=== PATIENT | male | born 1995 ===

== ENCOUNTER 2018-11-18 15:16 | Emergency (ER) | payer OTHER ==
--- NOTE | 2018-11-18 16:20 | ED PDOC ---
HPI: Abdomen Time Seen by Provider: 11/18/18 15:50 Chief Complaint (Nursing): Abdominal Pain Chief Complaint (Provider): Abdominal Pain and Vomiting History Per: Patient History/Exam Limitations: no limitations Onset/Duration Of Symptoms: Days (x 1) Current Symptoms Are (Timing): Still Present Location Of Pain/Discomfort: Periumbilical Quality Of Discomfort: "Pain" Associated Symptoms: Nausea, Vomiting Additional Complaint(s): 23 year old male presents to the ED with a sudden onset of vomiting since 1 am last night, about 12 hours, associated with periumbilical abdominal pain and nausea. Patient reports more than ten episodes of non bloody non bilious vomiting since onset. He did not take any medications prior to arrival. Denies fever, diarrhea, urinary symptoms, cough, chest pain, shortness of breath and recent travel. PMD: none provided Past Medical History Reviewed: Historical Data, Nursing Documentation, Vital Signs Vital Signs: Last Vital Signs Temp 98.2 F 11/18/18 15:29 Pulse 88 11/18/18 15:29 Resp 24 11/18/18 15:29 BP 120/75 11/18/18 15:29 Pulse Ox 100 11/18/18 15:29 - Medical History PMH: Bronchitis Denies: Asthma - Surgical History Surgical History: No Surg Hx - Family History Family History: States: Unknown Family Hx - Social History Current smoker - smoking cessation education provided: No Alcohol: Social Drugs: Denies - Home Medications Home Medications: Ambulatory Orders Medication Instructions Recorded Acetaminophen with Codeine 1 each PO Q8 #14 tablet 01/17/16 [Tylenol with Codeine #3 Tablet] Acyclovir [Zovirax] 800 mg PO 5XD #35 tab 01/17/16 Benzonatate 200 mg PO TID PRN #20 capsule 02/20/16 Oseltamivir Phosphate [Tamiflu] 75 mg PO BID #10 tab 02/20/16 Acetaminophen [Acetaminophen Extra 2 tab PO Q6 PRN #24 tablet 07/18/16 Strength] Albuterol HFA [Ventolin HFA 90 2 puff IH [id number] PRN #1 inhaler 07/18/16 mcg/actuation (8 g)] Azithromycin [Zithromax] 1 tab PO DAILY #6 tab 07/18/16 Ibuprofen [Motrin] 600 mg PO Q8 PRN #21 tab 07/18/16 Promethazine/Codeine 5 ml PO Q12 PRN #100 ml 07/18/16 [Codeine/Promethazine 10 MG/5 Ml-6.25 MG/5 Ml] Naproxen [Naprosyn] 500 mg PO Q12 PRN #20 tablet 02/16/17 Ondansetron [Zofran] 4 mg PO Q8H PRN #10 tab 02/16/17 Cephalexin [Keflex] 500 mg PO Q6 #28 capsule 10/08/17 Ibuprofen [Motrin Tab] 1 tab PO Q6 PRN #20 tab 10/08/17 Sulfamethoxazole/Trimethoprim 1 tab PO BID #14 tab 10/08/17 [Bactrim DS 800 mg-160 mg] Amoxicillin 875 mg PO BID #20 tab 04/25/18 Ciprofloxacin/Dexamethasone 4 drop .ROUTE BID #1 bottle 04/25/18 [Ciprodex 0.3%-0.1% 7.5 Ml] Acetaminophen [8 Hour] 650 mg PO Q8 PRN #21 tablet.er 11/18/18 Famotidine [Pepcid] 40 mg PO DAILY #7 tablet 11/18/18 Ondansetron ODT [Zofran ODT] 8 mg PO Q6 PRN #12 odt 11/18/18 - Allergies Allergies/Adverse Reactions: Allergies Allergy/AdvReac Type Severity Reaction Status Date / Time No Known Allergies Allergy Verified 04/25/18 17:09 Review of Systems ROS Statement: Except As Marked, All Systems Reviewed And Found Negative Constitutional: Negative for: Fever Respiratory: Negative for: Cough, Shortness of Breath Gastrointestinal: Positive for: Nausea, Vomiting (more than 10 episodes of nbnb ), Abdominal Pain (periumbilical). Negative for: Diarrhea Genitourinary Male: Negative for: Dysuria, Frequency, Incontinence, Hematuria Physical Exam - Reviewed Nursing Documentation Reviewed: Yes Vital Signs Reviewed: Yes - Physical Exam Comments: GENERAL APPEARANCE: Patient is awake, alert, oriented x 3, in no acute distress; appear uncomfortable. SKIN: Warm, dry; (-) cyanosis. EYES: (-) conjunctival pallor. ENMT: Mucous membranes dry. NECK: (-) tenderness, (-) stiffness, (-) lymphadenopathy, (-) JVD. CHEST AND RESPIRATORY: (-) rash, (-) chest wall tenderness. Lungs: (-) rales, (-) rhonchi, (-) wheezes, (-) rub; breath sounds equal bilaterally. HEART AND CARDIOVASCULAR: (-) irregularity; (-) murmur, (-) gallop, (-) rub. ABDOMEN AND GI: Soft; (-) distention, (-) tenderness, (-) palpable pulsatile mass. BACK: Normal inspection; (-) CVA tenderness EXTREMITIES: (-) deformity; (-) edema, (-) calf tenderness. (+) distal pulses. NEURO AND PSYCH: Mental status as above. Cranial nerves grossly intact; strength symmetric. or tearing quality, (-) positional component, (-) exertional component, (-) dizziness, (-) syncope, (-) nausea, (-) vomiting, (-) calf swelling/pain, (-) neuro deficits. - Laboratory Results Result Diagrams: 11/18/18 16:20 11/18/18 16:20 Urine dip results: Positive for: Ketones (40). Negative for: Leukocyte Esterase, Blood, Nitrate, Glucose, Bilirubin, Protein - ECG O2 Sat by Pulse Oximetry: 100 (RA) Pulse Ox Interpretation: Normal Medical Decision Making Medical Decision Makin:57 Impression: abdominal pain and vomiting Initial Plan: --CMP --UDS --Lipase --CBC --Urine dip --NS IV --Pepcid 40mg IVP --Toradol 30mg IVP --Zofran Inj 8mg IVP --Influenza AB 1650 Udip reviewed and unremarkable. 1724 On re-evaluation, patient reports resolution of nausea and vomiting. Abdominal pain improved. CBC With Leukocytosis (20.2) and neutrophil shift. CMP grossly unremarkable. Lipase WNL. Influenza: negative Additional 1L NS ordered for hydration. 1829 Utox: cannabinoids Patient reports no complaints at present. Results discussed with patient with understanding. Patient now reports is nephew is also sick with viral gastroenteritis. Anticipate discharging patient when 2nd L NS complete. 1914 Patient requesting additional medication prior to discharge. Reglan 10mg IV ordered. 1944 On re-evaluation, patient reports improvement of symptoms. On exam, patient remains AAOx3, in no acute distress. Lungs clear to auscultation, cardiac RRR, abdomen soft, non-tender, repeat neuro exam shows no focal findings. Vitals stable. Lab/Diagnostic results d/w the patient in great detail. Diagnosis of abdominal pain, nausea and vomiting, viral gastroenteritis d/w the patient. Based on history, exam and diagnostic results, plan will be for outpatient follow up with clinic/GI. Patient instructed to follow-up with pmd / referral provided / the clinic in 1- 2 days without fail. Advised to take medication as prescribed. Return to the emergency room at any time for any new or worsening symptoms. Patient states he fully agrees with and understands discharge instructions. States that he agrees with the plan and disposition. Verbalized and repeated discharge instructions and plan. I have given the patient opportunity to ask any additional questions. Scribe Attestation: Documented by Kimberly Mitchell acting as a scribe for Javed Shields MD Provider Scribe Attestation: All medical record entries made by the Scribe were at my direction and personally dictated by me. I have reviewed the chart and agree that the record accurately reflects my personal performance of the history, physical exam, medical decision making, and the department course for this patient. I have also personally directed, reviewed, and agree with the discharge instructions and disposition. Disposition - Clinical Impression Clinical Impression: Abdominal pain, Viral gastroenteritis, Nausea and vomiting, Body aches - Patient ED Disposition Is Patient to be Admitted: No Counseled Patient/Family Regarding: Studies Performed, Diagnosis, Need For Followup, Rx Given - Disposition Referrals: [facility] [Outside] Bimal Patiño MD [Staff Provider] - Disposition: Routine/Home Disposition Time: 19:50 Condition: STABLE Additional Instructions: The emergency medical care you received today was directed at your acute symptoms. If you were prescribed any medication, please fill it and take as directed. It may take several days for your symptoms to resolve. Return to the Emergency Department if your symptoms worsen, do not improve, or if you have any other problems. Please contact your doctor in 2 days for re-evaluation and follow up / or call one of the physicians/clinics you have been referred to that are listed on the Patient Visit Information form that is included in your discharge packet. Bring any paperwork you were given at discharge with you along with any medications you are taking to your follow up visit. Our treatment cannot replace ongoing medical care by a primary care provider (PCP) outside of the emergency department. Prescriptions: Acetaminophen [8 Hour] 650 mg PO Q8 PRN #21 tablet.er PRN Reason: Pain, Moderate (4-7) Famotidine [Pepcid] 40 mg PO DAILY #7 tablet Ondansetron ODT [Zofran ODT] 8 mg PO Q6 PRN #12 odt PRN Reason: Nausea/Vomiting Instructions: Viral Gastroenteritis, Sweet Grass Diet, Acute Abdomen (Belly Pain), Adult (DC), Nausea and Vomiting, Adult (DC) Forms: Touch-Writer (Iranian) Print Language: HEBREW - POA Present On Arrival: None Results - Lab Results Lab Results: 11/18/18 11/18/18 11/18/18 16:20 16:20 16:20 WBC RBC Hgb Hct MCV MCH MCHC RDW Plt Count MPV Neut % (Auto) Lymph % (Auto) Harmon % (Auto) Eos % (Auto) Baso % (Auto) Neut # (Auto) Lymph # (Auto) Harmon # (Auto) Eos # (Auto) Baso # (Auto) Neutrophils % (Manual) Band Neutrophils % Lymphocytes % (Manual) Monocytes % (Manual) Platelet Estimate RBC Morphology Sodium 142 Potassium 4.1 Chloride 102 Carbon Dioxide 26 Anion Gap 18 BUN 14 Creatinine 0.7 L Est GFR ( Amer) > 60 Est GFR (Non-Af Amer) > 60 Random Glucose 108 Calcium 9.5 Total Bilirubin 1.3 AST 35 ALT 37 Alkaline Phosphatase 118 Total Protein 8.6 H Albumin 5.1 H Globulin 3.5 Albumin/Globulin Ratio 1.4 Lipase 62 Urine Opiates Screen Negative Urine Methadone Screen Negative Ur Barbiturates Screen Negative Ur Phencyclidine Scrn Negative Ur Amphetamines Screen Negative U Benzodiazepines Scrn Negative U Oth Cocaine Metabols Negative U Cannabinoids Screen Positive H Influenza Typ A,B (EIA) Negative for flu a/b 11/18/18 16:20 WBC 20.2 H RBC 5.29 Hgb 14.9 Hct 44.2 MCV 83.5 MCH 28.2 MCHC 33.8 RDW 13.5 Plt Count 246 MPV 8.4 Neut % (Auto) 91.8 H Lymph % (Auto) 2.6 L Harmon % (Auto) 5.1 Eos % (Auto) 0.1 Baso % (Auto) 0.4 Neut # (Auto) 18.6 H Lymph # (Auto) 0.5 L Harmon # (Auto) 1.0 H Eos # (Auto) 0.0 Baso # (Auto) 0.1 Neutrophils % (Manual) 85 H Band Neutrophils % 7 H Lymphocytes % (Manual) 6 L Monocytes % (Manual) 2 Platelet Estimate Normal RBC Morphology Normal Sodium Potassium Chloride Carbon Dioxide Anion Gap BUN Creatinine Est GFR ( Amer) Est GFR (Non-Af Amer) Random Glucose Calcium Total Bilirubin AST ALT Alkaline Phosphatase Total Protein Albumin Globulin Albumin/Globulin Ratio Lipase Urine Opiates Screen Urine Methadone Screen Ur Barbiturates Screen Ur Phencyclidine Scrn Ur Amphetamines Screen U Benzodiazepines Scrn U Oth Cocaine Metabols U Cannabinoids Screen Influenza Typ A,B (EIA)
[2018-11-18] MEDS: Sodium Chloride 0.9% 1,000 ML IV STA ×2 (16:27→17:56)
[2018-11-18 16:45] VITALS: TEMP 98.1
[2018-11-18 16:46] VITALS: O2SAT 100
[2018-11-18 16:51] LABS: BASO # 0.1 K/uL (0.0-0.2); BASO % 0.4 % (0.0-2.0); EOS % 0.1 % (0.0-4.0); HEMOGLOBIN 14.9 g/dL (12.0-18.0); LYMPH # 0.5 K/uL (1.0-4.3); LYMPH % 2.6 % (20.0-40.0); MEAN CELL VOLUME 83.5 fl (80.0-94.0); MEAN CORPUSCULAR HEMOGLOBIN 28.2 pg (27.0-31.0); MEAN CORPUSCULAR HGB CONC 33.8 g/dL (33.0-37.0); MEAN PLATELET VOLUME 8.4 fl (7.2-11.7); MONO % 5.1 % (0.0-10.0); NEUT # 18.6 K/uL (1.8-7.0); NEUT % 91.8 % (50.0-75.0); NRBC % 0.1 % (0.0-0.0); PLATELET COUNT 246 K/uL (130-400); RBC 5.29 Mil/uL (4.40-5.90); RED CELL DISTRIBUTION WIDTH 13.5 % (11.5-14.5); WHITE BLOOD COUNT 20.2 K/uL (4.8-10.8)
[2018-11-18 17:24] LABS: ALB/GLOB RATIO 1.4 (1.0-2.1); ALBUMIN 5.1 g/dL (3.5-5.0); ALT/SGPT 37 U/L (21-72); AST/SGOT 35 U/L (17-59); BLOOD UREA NITROGEN 14 mg/dl (9-20); CALCIUM 9.5 mg/dL (8.4-10.2); GFR NON-AFRICAN AMERICAN > 60; LIPASE 62 U/L (23-300)
[2018-11-18] MEDS ORDERED: Sodium Chloride 0.9% 1,000 ML IV ONE (17:29)
[2018-11-18 17:32] LABS: BARBITURATES, UR NEGATIVE (NEGATIVE); BENZODIAZEPINES, UR NEGATIVE (NEGATIVE); OPIATES, UR NEGATIVE (NEGATIVE); PHENCYCLIDINE, UR NEGATIVE (NEGATIVE)
[2018-11-18 18:15] LABS: BANDS 7 % (0-2); LYMPHOCYTE 6 % (20-50); MONOCYTE 2 % (0-10); NEUTROPHIL 85 % (42-75); PLATELET ESTIMATE NORMAL (NORMAL); TOTAL CELLS COUNTED 100
[2018-11-18 19:35] VITALS: BP 100/54; PULSE 71; RESP 20
== END 2018-11-18 20:29 | disposition home or self-care (01) ==
LOC: H.ER 15:16
DX: R10.9 Unspecified abdominal pain (principal); A08.4 Viral intestinal infection, unspecified; R11.2 Nausea with vomiting, unspecified; M79.10 Myalgia, unspecified site
CPT/HCPCS: 80053; 80324; 80345; 80346; 80349; 80353; 80358; 80361; 83690; 83992; 85025; 87804; 96361; 96374; 96375; 99284; J1885; J2405; J2765; J7030; J7040